=== PATIENT | female | born 1990 | race African-American/Black ===

== ENCOUNTER 2017-04-13 04:57 | Emergency (ER) | payer OTHER ==
[~2017-04-13] VITALS: Ht 165.1 cm; Wt 110.6 kg
[2017-04-13 06:12] VITALS: BP 111/70
== END 2017-04-13 06:12 | disposition home or self-care (01) | DRG 607 ==
LOC: ED 04:57
DX: R22.31 Localized swelling, mass and lump, right upper limb (principal)

== ENCOUNTER 2024-03-09 12:45 | Emergency (ER) | payer SELFPAY ==
[~2024-03-09] VITALS: Ht 165.1 cm; Wt 98.0 kg
[2024-03-09 13:25] VITALS: BP 110/65
[2024-03-09 13:30] VITALS: BP 110/73
[2024-03-09] MEDS ORDERED: KETOROLAC TROMETHAMINE 30 MG/ML SDV IM ONE (13:35)
[2024-03-09 13:45] VITALS: BP 120/85
[2024-03-09 14:15] VITALS: BP 105/69
[2024-03-09] MEDS ORDERED: TAM75CAP PO (14:20)
[2024-03-09 14:22] VITALS: BP 105/69
== END 2024-03-09 14:25 | disposition home or self-care (01) | DRG 153 ==
LOC: ED 12:45
DX: J11.1 Influenza due to unidentified influenza virus with other respiratory manifestations (principal); Z20.822 Contact with and (suspected) exposure to COVID-19